=== PATIENT | male | born 1960 | race Caucasian/White ===

== ENCOUNTER 2022-11-02 16:09 | Emergency (ER) | payer BC, OTHER ==
[2022-11-02] MEDS ORDERED: Morphine 4 MG/ML Syringe IVPUSH ONE (16:33)
[2022-11-02] MEDS ORDERED: Diphtheria,Pertussis(Acell),Tetanus Vaccine 0.5 ML Syringe IM ONE (16:41)
[2022-11-02] MEDS ORDERED: Lactated Ringers 1,000 ML IV SCH (16:45)
[2022-11-02 17:10] LABS: BASOPHILS ABSOLUTE AUTO 0.03 K/mm3 (0.01-0.08); BASOPHILS PERCENT AUTO 0.3 % (0.1-1.2); EOSINOPHILS ABSOLUTE AUTO 0.04 K/mm3 (0.04-0.54); EOSINOPHILS PERCENT AUTO 0.3 (0.8-7.0); HEMOGLOBIN 15.2 gm/dl (13.7-17.5); IMMATURE GRAN ABSOLUTE AUTO 0.07 K/mm3 (0.00-0.10); IMMATURE GRAN PERCENT AUTO 0.6 % (<=1.0); LYMPHOCYTES ABSOLUTE AUTO 3.33 K/mm3 (1.32-3.57); LYMPHOCYTES PERCENT AUTO 29.1 % (21.8-53.1); MEAN CORPUSCULAR HGB CONC 33.8 g/dl (32.2-35.5); MEAN CORPUSCULAR VOLUME 94.7 fl (79.0-92.2); MONOCYTES ABSOLUTE AUTO 0.76 K/mm3 (0.30-0.82); MONOCYTES PERCENT AUTO 6.6 % (5.3-12.2); NEUTROPHILS PERCENT AUTO 63.1 % (34.0-67.9); PLATELET COUNT,PLT 294 K/mm3 (163-337); RED BLOOD CELL COUNT 4.75 M/mm3 (4.63-6.08); WHITE BLOOD CELL COUNT,WBC 11.43 K/mm3 (4.23-9.07)
[2022-11-02 17:25] LABS: A/G RATIO 1.4 (1-2); ALBUMIN 4.1 g/dl (3.4-5.0); ANION GAP 11.6 (5-15); BILIRUBIN TOTAL 0.6 mg/dL (0.2-1.0); BUN/CREATININE RATIO 17.3 (14-18); CALCIUM 9.2 mg/dL (8.5-10.1); CREATININE 1.5 mg/dL (0.7-1.3); EST CRCL DRUG DOSING (CG) 57.71 mL/min; POTASSIUM,K 3.6 mEq/L (3.5-5.1)
[2022-11-02 17:28] LABS: INR 1.04; PROTHROMBIN TIME 11.1 SECONDS (9.7-12.0)
[2022-11-02 17:29] LABS: PTT,PARTIAL THROMBOPLSTIN TIME 21.4 SECONDS (21.7-31.4)
[2022-11-02] MEDS ORDERED: Iopamidol 612 MG/ML 100 ML Bottle IVPUSH ONE (17:47)
[2022-11-02] MEDS ORDERED: fentaNYL 100 MCG/2 ML SDV ONE (18:42)
[2022-11-02] MEDS ORDERED: fentaNYL 100 MCG/2 ML SDV IVPUSH ONE ×2 (18:45→19:05)
[2022-11-02] MEDS ORDERED: Lidocaine 1% 20 ML MDV INJECT ONE (18:55)
[2022-11-02] MEDS ORDERED: ceFAZolin 2 GM in Sodium Chloride 0.9% 50 ML IV ONE (19:57)
[2022-11-02] MEDS ORDERED: ceFAZolin 2 GM Vial ONE (19:58)
[2022-11-02] MEDS ORDERED: Sodium Chloride 0.9% 50 ML ONE (19:59)
[2022-11-02 20:47] VITALS: BP 126/90; PULSE 98
== END 2022-11-02 20:15 ==
LOC: JD.ED 16:09
DX: S02.641B Fracture of ramus of right mandible, initial encounter for open fracture (principal); S22.21XA Fracture of manubrium, initial encounter for closed fracture; S22.43XA Multiple fractures of ribs, bilateral, initial encounter for closed fracture; S63.282A Dislocation of proximal interphalangeal joint of right middle finger, initial encounter; S52.592A Other fractures of lower end of left radius, initial encounter for closed fracture; S42.111A Displaced fracture of body of scapula, right shoulder, initial encounter for closed fracture; S27.2XXA Traumatic hemopneumothorax, initial encounter; S42.031A Displaced fracture of lateral end of right clavicle, initial encounter for closed fracture; S61.212A Laceration without foreign body of right middle finger without damage to nail, initial encounter; S27.321A Contusion of lung, unilateral, initial encounter; Z23 Encounter for immunization; W11.XXXA Fall on and from ladder, initial encounter
CPT/HCPCS: 12001; 32551; 36415; 70450; 70486; 71045; 71260; 72125; 73030; 73110; 73130; 74177; 80053; 84484; 85025; 85610; 85730; 90471; 90715; 93005; 96361; 96365; 96375; 99285; J0690; J2270; J3010; J3490; J7120; Q9967

== ENCOUNTER 2023-06-30 15:29 | Emergency (ER) | payer BC ==
[2023-06-30 17:44] LABS: APPEARANCE,URINE CLEAR (Clear); GLUCOSE,URINE NEGATIVE (Negative); KETONES,URINE 1+ (Negative); PH,URINE 6.5 (5.0-8.0); PROTEIN,URINE NEGATIVE (Negative)
[2023-06-30 17:45] LABS: BILIRUBIN,URINE NEGATIVE (Negative); LEUKOCYTE ESTERASE,URINE NEGATIVE (Negative); NITRITE,URINE NEGATIVE (Negative); OCCULT BLOOD,URINE TRACE-LYSED (Negative); UROBILINOGEN,URINE 0.2 (0.2-1.0)
[2023-06-30 17:46] LABS: BACTERIA,URINE FEW /hpf (FEW); COLOR,URINE YELLOW (Yellow); EPITHELIAL CELLS,URINE NOT SEEN /hpf (0-5); MUCUS,URINE NOT SEEN /hpf (FEW); RBC,URINE 0-5 /hpf (0-5); WBC,URINE 0-5 /hpf (0-5)
[2023-06-30 18:51] VITALS: BP 133/90; PULSE 84
== END 2023-06-30 18:17 | disposition home or self-care (01) ==
LOC: JD.ED 15:29
DX: N30.90 Cystitis, unspecified without hematuria (principal); I10 Essential (primary) hypertension; E78.00 Pure hypercholesterolemia, unspecified; Z79.899 Other long term (current) drug therapy
CPT/HCPCS: 81001; 93005; 93010; 99283